=== PATIENT | male | born 1945 | race American Indian/Alaskan Native ===

== ENCOUNTER → 2017-10-03 12:42 | Outpatient (CLI) | payer MEDICARE, OTHER, SELFPAY ==
--- NOTE | 2017-10-03 | DI.ECHO.S_ITS ---
[facility] +---------+ : : [address] : : : : [id number] : : : : Phone: [phone] Echocardiogram Report + + :Name: GABRIEL CHACKO Study Date: 10/03/2017 Height: 67 in : :[facility] Exam Location: IS Weight: 195 lb : : Gender: Male BSA: 2.0 m2 : :: 1945 Age: 72 yrs BP: 130/85 mmHg: :Reason For Study: Atrial fibrillation : :Ordering Physician: Jayleen Duran : :Dominic Performed By: Nubia Page : + + Interpretation Summary 1) Normal left ventricular thickness, size, wall motion, and systolic function (EF 60-65%). 2) Normal right ventricular size and function. 3) No significant valvular abnormalities. 4) Mild atherosclerotic plaque(s) in the aortic arch. 5) No prior Echo available for comparison. Procedure: A two-dimensional transthoracic echocardiogram with color flow and Doppler was performed. The study quality was technically adequate. There is no prior echocardiogram noted for this patient. The patient was in sinus bradycardia with heart rates between 48-52 bpm during the exam. Left Ventricle: The left ventricle is normal in size, wall thickness, and systolic function without any focal wall motion abnormalities. The ejection fraction is estimated to be 60-65%. Assessment of diastolic parameters indicates normal left ventricular diastolic function and normal filling pressures. Right Ventricle: The right ventricle is borderline dilated. The right ventricular systolic function is normal. Atria: The left atrium is severely dilated. The right atrium is mildly dilated. There is no Doppler evidence for an interatrial shunt. Mitral Valve: The mitral valve is normal in structure and function. There is trace mitral regurgitation. Aortic Valve: The aortic valve is trileaflet. The aortic valve opens well. The aortic valve is mildly calcified. There is trace aortic regurgitation. Tricuspid Valve: The tricuspid valve is normal in structure and function. There is mild tricuspid regurgitation. Pulmonic Valve: The pulmonic valve is not well visualized. There is no pulmonic valvular regurgitation. Great Vessels: The aortic root is normal size. The ascending aorta is at the upper limits of normal in size. The aortic arch is normal in size. Mild atherosclerotic plaque(s) in the aortic arch. The pulmonary artery is not well visualized, but is probably normal size. The IVC is dilated (diameter is greater than 2.1 cm) yet it collapses greater than 50% with a sniff. This suggests a right atrial pressure of 8 mm Hg. Pericardium/ Pleura There is no pericardial effusion. There is no pleural effusion. MMode/2D Measurements & Calculations LVIDd: 5.0 cm LVOT diam: 2.2 cm LVIDs: 3.2 cm Ao root diam: 3.5 cm FS: 37.4 % asc Aorta Diam: 3.4 cm EPSS: 0.61 cm Ao Arch Diam (Prox Trans): 2.8 cm IVSd: 0.78 cm LVPWd: 0.80 cm LV carrera. diameter/BSA (cm/m^2): 2.5 LV sys. diameter/BSA (cm/m^2): 1.6 LA A2 area: 26.4 cm2 RA long axis: 5.5 cm LA A4 area: 29.1 cm2 RA area: 20.9 cm2 LA length (vol): 6.9 cm RA vol: 67.4 ml LA vol: 94.5 ml RA : 33.7 ml/m2 LA vol index: 47.2 ml/m2 IVC diam: 2.3 cm RVD1 (basal): 4.8 cm TAPSE: 2.8 cm Doppler Measurements & Calculations Ao V2 max: 154.4 cm/sec LVOT Max Garth: 96.4 cm/sec Ao V2 mean: 100.9 cm/sec LV V1 max P.7 mmHg Ao max P.5 mmHg LV V1 VTI: 19.9 cm Ao mean P.6 mmHg ANNA(I,D): 2.5 cm2 Ao V2 VTI: 30.2 cm ANNA(V,D): 2.3 cm2 sev ratio: 0.66 ANNA indexed to BSA (cm^2/m^2): 1.2 MV E max garth: 70.3 cm/sec TR max garth: 248.6 cm/sec MV A max garth: 70.9 cm/sec TR max P.7 mmHg MV E/A: 0.99 PA V2 max: 65.3 cm/sec Med Peak E' Garth: 8.7 cm/sec PA V2 mean: 45.8 cm/sec E/E' med: 8.1 PA mean P.94 mmHg Lat Peak E' Garth: 9.6 cm/sec PA Accel Time: 0.12 sec E/E' lat: 7.3 E/e' average: 7.7 MV dec time: 0.29 sec MV P1/2t: 82.9 msec MV P1/2t max garth: 70.5 cm/sec MVA(P1/2t): 2.7 cm2 Reading Physician:05:30 PM
== END ==
PROVIDERS: PCP Physician Assistant; Visit Provider Internal Medicine Cardiovascular Disease
DX: I48.91 Unspecified atrial fibrillation (principal)
CPT/HCPCS: 93306

== ENCOUNTER → 2018-01-27 13:12 | Outpatient (CLI) | payer MEDICARE, OTHER, SELFPAY ==
--- NOTE | 2018-01-27 | DI.CT.S_ITS ---
PROCEDURE: CT LUMBAR SPINE WO CON INDICATIONS: Bilateral lower extremity weakness post lumbar surgery 06-26-17 TECHNIQUE: Noncontrast 3 mm thick sections acquired from the T12 level to the sacrum. Sagittal and coronal reformats were constructed. For radiation dose reduction, the following was used: automated exposure control. COMPARISON: [facility], CR, XR LUMBAR SPINE 2 OR 3 VIEWS, 01/22/2018, 8:40. [facility], CR, XR LUMBAR SPINE 2 OR 3 VIEWS, 10/09/2017, 8:40. [facility], MR, L-SPINE W&WO CONTRAST, 05/29/2016, 9:11. FINDINGS: Image quality: Excellent. Posterior fusion with intervertebral spacer is present at L5-S1. Hardware is intact. Distal aspect of the left pedicular screw at S1 extends just beyond the margin of the S1 vertebral body. There are no visualized fractures or dislocations. Mild to moderate multilevel disc space narrowing is present. Mild disc bulges are present at L2-3, L3-4 including a left lateral/foraminal component, L4-5. Mild spinal stenosis is noted at L3-4, suspected moderate at L4-5, although difficult to evaluate secondary to metallic streak artifact. Mild to moderate left foraminal narrowing L1-L2, moderate left and minimal right L3-L4, mild bilateral L4-5, moderate left and severe right L5-S1. No retroperitoneal masses or hematomas. Visualized aorta is normal in caliber. IMPRESSION: 1. Posterior fusion at L5-S1 as above. 2. Multilevel spinal stenosis most notable at L4-5 predominantly secondary to disc bulge with contributing effect of facet/ligamentum flavum arthropathy. 3. Multilevel foraminal narrowing most severe at L5-S1 secondary to facet arthropathy. Dictated by: Kitty Ross M.D. on 01/27/2018 at 16:43 Approved by: Kitty Ross M.D. on 01/27/2018 at 16:51
== END ==
PROVIDERS: PCP Physician Assistant; Visit Provider Orthopaedic Surgery Orthopaedic Surgery of the Spine
DX: M51.26 Other intervertebral disc displacement, lumbar region (principal); M47.817 Spondylosis without myelopathy or radiculopathy, lumbosacral region; M62.81 Muscle weakness (generalized); M48.07 Spinal stenosis, lumbosacral region; M48.061 Spinal stenosis, lumbar region without neurogenic claudication; Z98.1 Arthrodesis status
CPT/HCPCS: 72131

== ENCOUNTER → 2020-07-25 11:10 | Outpatient (CLI) | payer MEDICARE, OTHER, SELFPAY ==
--- NOTE | 2020-07-25 11:15 | DI.US.S_ITS ---
PROCEDURE: US SOFT TISSUE HEAD AND NECK INDICATIONS: Localized swelling, mass and lump, neck TECHNIQUE: Real-time scanning was performed of the neck region of interest, with image documentation. COMPARISON: None. FINDINGS: The patient reports having had a mass at the posterior neck, approximately C7-T1 area for 40 years. Increasing discomfort. Sonographic assessment shows an ovoid 4.1 x 2.4 x 5.7 cm hypoechoic mildly heterogeneous sharply demarcated mass with vascularity along its periphery. Etiology is uncertain but the structure does not have imaging characteristics of a lipoma. IMPRESSION: Surgical consultation recommended, sharply demarcated ovoid hypoechoic mass that could be benign or malignant in origin. The patient reports 40 year history in this area of a palpable abnormality. Follow-up contrast-enhanced MR scanning may be warranted for preoperative planning. Dictated by: Irvin Rausch M.D. on 07/25/2020 at 12:30 Approved by: Irvin Rausch M.D. on 07/25/2020 at 12:32
== END ==
PROVIDERS: PCP Physician Assistant; Referring Provider Family Medicine; Visit Provider Family Medicine
DX: R22.1 Localized swelling, mass and lump, neck (principal)
CPT/HCPCS: 76536

== ENCOUNTER → 2020-09-05 09:17 | Outpatient (CLI) | payer MEDICARE, OTHER, SELFPAY ==
--- NOTE | 2020-09-05 09:19 | DI.MRI.S_ITS ---
PROCEDURE: MR CERVICAL SPINE WO/W CON INDICATIONS: Abnormal US of neck; possible malignancy TECHNIQUE: Noncontrast sagittal T1 spin echo and T2 fast spin echo, sagittal STIR, foraminal oblique sagittal T2 fast spin echo, axial gradient echo or T2 fast spin echo through the cervical spine. After the administration of contrast, axial and sagittal T1 spin echo with fat saturation through the cervical spine. COMPARISON: [facility], MR, C-SPINE WITHOUT CONTRAST, 10/26/2012, 12:55. [facility], US, US SOFT TISSUE HEAD AND NECK, 07/25/2020, 10:34. FINDINGS: Image quality: This examination is limited by involuntary motion artifact. Alignment and curvature: There is reversal of the normal cervical lordosis, with the apex at the C4-C5 level. Marrow: Marrow is normal in overall signal, without suspicious enhancement. Spinal cord: Visualized spinal cord has normal size and signal. No cerebellar tonsillar herniation. No abnormal intramedullary enhancement. Paraspinous soft tissues: In this patient with this given history, scrutiny is given to the posterior neck mass. A marker is placed by the patient overlying the neck mass. This is seen as a well circumscribed T2 hyperintense superficial focus just to the left of the midline that measures 5.7 by 2.9 cm in greatest axial dimension, with a craniocaudal extent of 3.9 cm. No significant enhancement can be seen. No additional soft tissue masses are detected. C2-3: The disc height is well-preserved. Loss of disc signal is seen at this level. A mild degree of generalized disc osteophyte complex is seen. There is moderate right-sided and [id number] left-sided facet hypertrophy seen. Moderate bilateral neural foraminal narrowing can be seen, right worse than left. Mild to moderate central canal narrowing is seen. C3-4: Mild loss of disc height is seen. Loss of disc signal is seen. Mild to moderate disc osteophyte complex is seen. Moderate facet joint hypertrophy is seen. There is mild right-sided and moderate left-sided neural foraminal narrowing seen. Mild to moderate central canal narrowing is seen. C4-5: At least moderate loss of disc height and disc signal can be seen. Moderate to prominent disc osteophyte complex is seen. There is moderate right-sided and kupz-im-hmslqxuf left-sided facet hypertrophy seen. There is moderate to severe bilateral neural foraminal narrowing seen. At least moderate central canal narrowing is seen, with mass effect upon the ventral spinal cord. C5-6: At least moderate loss of disc height and disc signal can be seen. There is moderate to prominent disc osteophyte complex seen, with a central disc osteophyte protrusion. There is moderate to severe bilateral neural foraminal narrowing seen. Moderate to severe central canal narrowing is seen, with associated mass effect upon the ventral spinal cord. C6-7: At least moderate loss of disc height and disc signal can be seen at this level. At least moderate disc osteophyte complex is seen. Moderate facet joint hypertrophy is seen. At least moderate bilateral neural foraminal narrowing can be seen, right worse than left. At least moderate central canal narrowing is seen. There is associated mass effect upon the ventral spinal cord. C7-T1: At least moderate loss of disc height and disc signal can be seen. Moderate generalized disc osteophyte complex is seen. Moderate facet joint hypertrophy is seen. Moderate to severe bilateral neural foraminal narrowing can be seen. Mild central canal narrowing is seen. IMPRESSION: 5.7 cm cystic appearing, nonenhancing superficial lesion seen involving the posterior soft tissues, centered just to the left of the midline. This is attributed to a benign cause, potentially related to a sebaceous cyst. This has grown compared to the 2013 CT examination. Multiple levels of cervical spine degenerative change are seen, which have progressed compared to 2013. Dictated by: Clifford Nair M.D. on 09/05/2020 at 9:54 Approved by: Clifford Nair M.D. on 09/05/2020 at 10:02
== END ==
PROVIDERS: PCP Physician Assistant; Referring Provider Surgery; Visit Provider Surgery
DX: R22.1 Localized swelling, mass and lump, neck (principal); M50.31 Other cervical disc degeneration, high cervical region
CPT/HCPCS: 72156

== ENCOUNTER → 2020-09-15 10:25 | Outpatient (CLI) | payer MEDICARE, OTHER, SELFPAY ==
[2020-09-15 11:18] LABS: COVID19 -Nasal RAPID Negative (Negative)
== END ==
PROVIDERS: PCP Physician Assistant; Visit Provider Surgery
DX: Z20.822 Contact with and (suspected) exposure to COVID-19 (principal)
CPT/HCPCS: 87635; C9803

== ENCOUNTER 2020-09-18 07:58 | Day surgery (SDC) | payer MEDICARE, OTHER, SELFPAY ==
[2020-09-12 15:09] VITALS: BMI 32.5
[2020-09-18] VITALS (8 sets, daily range): BP systolic 131–143; BP diastolic 76–91; PULSE 79–91; RESP 13–20; TEMP 36.6–36.8; O2SAT 92–95; BMI 32.5
--- NOTE | 2020-09-18 | PATH_ITS ---
[facility] Accession Number: [id number] . 01 Material submitted: . neck - NECK, SEBACEOUS CYST . 01 Clinical history: . SDC . 01 Diagnosis: Skin, Neck, Biopsy: Epidermal inclusion cyst. [facility] 09/20/2020 1635 Local . 01 Electronically signed: . Shweta Delgadillo MD, Pathologist NPI- [id number] . 01 Gross description: . The specimen is received in formalin labeled neck sebaceous cyst and consists of a 5.2 x 3.0 x 3.0 cm intact up-white cyst which is inked blue and sectioned to reveal up-white sebaceous material within the cyst. The cyst has a up-white smooth inner lining. Conference Services Coordinator sections are submitted in cassettes [id number]. ([id number]) /[facility] 09/19/2020 1734 Local . 01 Pathologist provided ICD-10: L72.3 . 01 CPT . 909198 Performed at: 01 [facility] [address] [place] [address] [address], [place], [place] [id number] MD Alexander Trujillo MD Phone: [phone]
[2020-09-18] MEDS: LACTATED RINGERS 1,000 ML 100 ML IV (08:48)
--- NOTE | 2020-09-18 09:35 | PM.PREOP ---
Pre-operative Note COVID-19 COVID-19 status: Negative Result date/Date tested (Pos, Neg/Pending): 09/15/20 Interval Note History & Physical reviewed/Exam performed by Physician: Yes Changes to H&P: No
[2020-09-18] MEDS: CEFAZOLIN 1 GM VIAL 2 GM IV (09:46)
--- NOTE | 2020-09-18 10:06 | SUR.OPER ---
Left Lateral on padded blood bag on padded OR bed, head on pillow x2, bottom leg bent with gel pad under knee to foot, gel pad over bottom edge of blood bag that is under the patient's thigh, upper leg straight and supported with pillows. Upper arm supported by pillows x2 and secured over bottom arm to padded arm board. Safety belt at chest, tape over blanket over lower legs.
[2020-09-18] MEDS: BUPIVACAINE 0.25% (PF) VIAL 30 ML INJ (10:14)
[2020-09-18] MEDS: EPINEPHrine 1 MG/ML 0.15 MG SUBCUT (10:15)
--- NOTE | 2020-09-18 11:04 | P.OP_ITS ---
Operative Date/Time/Diagnoses Date of procedure: 09/18/20 Time of procedure: 11:04 Pre-op diagnosis: Posterior neck cystic mass Post-op diagnosis: other (Giant sebaceous cyst) Procedure & Clinicians Procedure: Excision of posterior neck giant sebaceous cyst 4 x 5 cm Same procedure as scheduled: Yes Indications: Localized pain, enlarging cystic mass of unknown etiology Surgeon: Shameka Sanchez Yes if Unassisted: Yes Anesthesia Type: General Operative Notes Findings: Giant 4cm x 5cm sebaceous cyst with a thick capsule. Specimen(s): other (Sebaceous cyst) Estimated Blood Loss (mL): 2 Procedure in detail: The patient was brought to the operating room, placed supine on the operating table, and sequential compression devices were placed on both legs and turned on. Appropriate perioperative antibiotics were given. General anesthesia was induced by the anesthesiologist and the patient was intubated with an LMA. The patient was then placed in left lateral decubitus position with all bony prominences padded. The skin of the upper back and neck were then prepped and draped in sterile fashion, and a surgical time-out was conducted. At this point local anesthetic was injected using 0.25% Marcaine with epi, at the site of the planned incision. A 5 cm vertical modified elliptical incision was then made in the skin overlying the lesion in question. Dissection was then carried down through the dermis and subcutaneous tissue, including the subcutaneous cystic lesion. The entire specimen was dissected free and passed off the table. The remaining wound was irrigated, and electrocautery was used to achieve hemostasis. The skin was closed with 3-0 nylon horizontal mattress sutures. Total of 20 mL of 0.25% Marcaine with epi was infiltrated into the skin. A dry dressing was placed over the incision, and secured with Tegaderms. The patient was awakened from anesthesia and extubated. He was transferred onto his hospital [facility]. The patient was then transferred to the postanesthesia care unit in stable condition. She tolerated the procedure well. Needle sponge and instrument counts were correct x2 at the end of the case. Complications: none Post-operative Condition: stable Disposition: PACU
--- NOTE | 2020-09-18 11:22 | SUR.PHASEI ---
Surgeon at [facility] discussing case, findings and follow-up. Pt communicate sppaorpriate level of comprehension and compliance. Surgeon discussed stopping Eliquis and rationale. Pt very calm and pleasant. Relaxed. Skin warm and dry. Surgeon communicates with pt that pt will be called on for follow-up since he will not be in town and can not visit surgeon in office. Pt thankful.
== END 2020-09-18 11:56 | disposition home or self-care (01) ==
PROVIDERS: PCP Physician Assistant; Referring Provider Surgery; Visit Provider Surgery
PROC: (CPT 11426; principal; 2020-09-18 09:45)
DX: L72.0 Epidermal cyst (principal); F17.210 Nicotine dependence, cigarettes, uncomplicated; I10 Essential (primary) hypertension; I48.91 Unspecified atrial fibrillation; R20.8 Other disturbances of skin sensation
CPT/HCPCS: 11426; 82962; J0171; J0690; J1100; J2250; J2405; J2704; J3010

== ENCOUNTER 2020-12-09 10:44 | Emergency (ER) | payer MEDICARE, OTHER, SELFPAY ==
[2020-12-09 10:59] VITALS: BP 100/66; PULSE 77; RESP 21; TEMP 36.7; O2SAT 95
--- NOTE | 2020-12-09 11:00 | ED_ITS ---
HPI - General Adult General Chief complaint: Extremity Problem,Nontraumatic Stated complaint: Cannot put pressure on legs- 2 days Time Seen by Provider: 12/09/20 10:45 Source: patient Mode of arrival: Wheelchair History of Present Illness HPI narrative: Patient is a 75-year-old male who arrives the emergency department today for approximately 24-36 hours of pain in his bilateral lower extremities. He states that the symptoms started prior to having a 7 [address] ride. He states that his pain all around his legs. Specifically when he stands on his legs. No tingling. No urinary symptoms. No bowel habits. No fevers. He has had spinal surgery in the past but he does not think that he is having any back pain today. He denies any specific trauma. Related Data Home Medications Medication Instructions Recorded Confirmed amlodipine 10 mg tablet 10 mg PO QDAY #0 06/11/17 09/26/20 atorvastatin 20 mg tablet (Lipitor) 20 mg PO QAM #0 06/11/17 09/26/20 buprenorphine 10 mcg/hour weekly 1 patch TOPICAL QWEEKSA #0 06/11/17 09/26/20 transdermal patch (Butrans) doxazosin 1 mg tablet 1 mg PO QAM #0 06/11/17 09/26/20 furosemide 20 mg tablet 20 mg PO QDAY #0 06/11/17 09/26/20 gabapentin 300 mg capsule 2 tab PO BID #0 06/11/17 09/26/20 (Neurontin) lisinopril 30 mg tablet 60 mg PO QDAY #0 06/11/17 09/26/20 potassium chloride 8 mEq 8 meq PO QDAY #0 06/11/17 09/26/20 capsule,extended release doxazosin 1 mg tablet (Cardura) 1 mg PO DAILY 08/23/20 09/26/20 hydrocodone 5 mg-acetaminophen 325 1 tab PO BID PRN 08/23/20 09/26/20 mg tablet metoprolol succinate 50 mg 50 mg PO DAILY 08/23/20 09/26/20 tablet,extended release 24 hr hydroxyzine pamoate 25 mg capsule 25 - 50 mg PO Q4HP PRN 09/14/20 09/26/20 Previous Rx's Medication Instructions Recorded hydrocodone 5 mg-acetaminophen 325 1 tab PO Q8H PRN #10 tab 09/11/21 mg tablet Allergies Allergy/AdvReac Type Severity Reaction Status Date / Time No Known Drug Allergies Allergy Verified 09/26/20 10:53 Review of Systems Constitutional Constitutional: Reports system reviewed and no additional complaints, except as documented Cardiovascular Cardiovascular: Reports system reviewed and no additional complaints, except as documented Respiratory Respiratory: Reports system reviewed and no additional complaints, except as d ocumented Gastrointestinal Gastrointestinal: Reports system reviewed and no additional complaints, except as documented Genitourinary Genitourinary: Reports system reviewed and no additional complaints, except as documented Musculoskeletal Musculoskeletal: Reports system reviewed and no additional complaints, except as documented Integumentary/Breasts Skin/Breast: Reports system reviewed and no additional complaints, except as documented Neurologic Neurologic: Reports system reviewed and no additional complaints, except as documented Hematologic/Lymphatic On Anticoagulants: No Patient History Medical History A-fib (~2017) Chronic low back pain Chronic neck pain Current every day smoker Diverticulosis HTN (hypertension) Hyperlipemia Lumbar radiculopathy Nerve root injury Trauma Surgical History History of back surgery (06/26/17) Hx of knee surgery Social History marital status: unknown household members: none Smoking Status: Current every day smoker substance use type: does not use Smoking Status: Current every day smoker alcohol intake frequency: a few times a week Substance Use Type: does not use Exam Initial Vital Signs Initial Vital Signs: Vital Signs Temperature 98.0 F 12/09/20 10:59 Pulse Rate 77 12/09/20 10:59 Respiratory Rate 21 12/09/20 10:59 Blood Pressure 100/66 12/09/20 10:59 Pulse Oximetry 95 12/09/20 10:59 Const General: cooperative and healthy appearing HENMT Head: normal to inspection and normocephalic Resp Effort & Inspection: normal respiratory effort Auscultation: clear to auscultation bilaterally Cardio Rate: regular rate Rhythm: regular rhythm Back/Spine/Pelvis Thoracic/Lumbar Spine: No paraspinal tenderness, No thoraco-lumbar spasm and No thoracic spinal tenderness Sacroiliac Joints: nontender Skin General: no rashes or lesions noted Neuro General: patient alert and patient awake Motor: muscle tone normal throughout Sensory Exam: no sensory deficits noted Extrem Other: Patient does not have any specific tenderness to palpation of his bilateral hips knees or ankles. He reports pain in his legs when he flexes at his hips both active and passive. Psych Appearance: grossly normal and well kempt Course Orders Ordered: Discontinued Medications Hydromorphone HCl (Hydromorphone 1 Mg Inj) 1 mg IV NOW ONE Stop: 12/09/20 11:02 Last Admin: 12/09/20 11:23 Dose: Not Given Documented by: BARBRA Hydromorphone HCl (Hydromorphone 1 Mg Inj) 1 mg IM NOW ONE Stop: 12/09/20 11:14 Last Admin: 12/09/20 11:14 Dose: 1 mg Documented by: BARBRA Ketorolac Tromethamine (Ketorolac 30 Mg/Ml Vial) 30 mg IM NOW ONE Stop: 12/09/20 11:02 Last Admin: 12/09/20 11:14 Dose: 30 mg Documented by: BARBRA Vital Signs Vital signs: Vital Signs - 8 hr 12/09/20 10:59 12/09/20 11:38 Temperature 98.0 F Pulse Rate 77 66 Respiratory Rate 21 16 Blood Pressure 100/66 100/60 Pulse Oximetry 95 96 Medical Decision Making [facility] Narrative Medical decision making narrative: Patient denies trauma. Low suspicion for fracture. No indication for radiologic studies. No back pain. Low suspicion for cauda equina. I do suspect this is musculoskeletal. He has no neurologic symptoms. He does feel better after medications given here in the emergency department. Will send home with prescription for pain medication. He has a walker at home that he can use if needed. He was given return precautions follow-up instructions. He expressed understanding and agreement. Discharge Plan Departure Patient Disposition: Home Clinical Impression: Leg pain, bilateral Instructions: DI for Leg Pain Activity Restrictions/Additional Instructions: I do recommend that you use the walker as needed. You can use the pain medication is needed as well. Contact your primary doctor for follow-up. Return to the emergency department for any new or worsening symptoms Prescriptions: New hydrocodone-acetaminophen 5-325 mg tablet 1 tab PO Q8H PRN (Reason: pain) Qty: 10 RF: 0 No Action lisinopril 30 MG tablet 60 mg PO QDAY Qty: 0 RF: 0 gabapentin [Neurontin] 300 MG capsule 2 tab PO BID Qty: 0 RF: 0 doxazosin 1 MG tablet 1 mg PO QAM Qty: 0 RF: 0 buprenorphine [Butrans] 10 MCG patch weekly 1 patch Topical QWEEKSA Qty: 0 RF: 0 potassium chloride 8 MEQ capsule, extended release 8 meq PO QDAY Qty: 0 RF: 0 furosemide 20 MG tablet 20 mg PO QDAY Qty: 0 RF: 0 atorvastatin [Lipitor] 20 MG tablet 20 mg PO QAM Qty: 0 RF: 0 amlodipine 10 MG tablet 10 mg PO QDAY Qty: 0 RF: 0 metoprolol succinate 50 mg tablet extended release 24 hr 50 mg PO DAILY RF: 0 hydrocodone-acetaminophen 5-325 mg tablet 1 tab PO BID PRN (Reason: Pain) RF: 0 doxazosin [Cardura] 1 mg tablet 1 mg PO DAILY RF: 0 hydroxyzine pamoate 25 MG capsule 25 - 50 mg PO Q4HP PRN (Reason: Pain, spasm) RF: 0 Referrals: Eveline Pantoja PA-C [Primary Care Provider] -
[2020-12-09] MEDS: KETOROLAC 30 MG/ML VIAL IM (11:14)
[2020-12-09] MEDS: HYDROMORPHONE 1 MG INJ IM (11:14)
[2020-12-09 11:38] VITALS: BP 100/60; PULSE 66; RESP 16; O2SAT 96
--- NOTE | 2020-12-09 11:51 | PC.NURSE ---
Pt stood at bedside and verbalized improvement in pain, x1 assist to stand but able to stand independently once up. States he has a walker at home he utilizes.
== END 2020-12-09 12:07 | disposition home or self-care (01) ==
PROVIDERS: Emergency Provider Emergency Medicine; PCP Physician Assistant
DX: M79.605 Pain in left leg (principal); M79.604 Pain in right leg
CPT/HCPCS: 96372; 99283; J1170; J1885

== ENCOUNTER → 2022-12-03 13:00 | Outpatient (CLI) | payer MEDICARE, OTHER, SELFPAY ==
--- NOTE | 2022-12-03 | DI.US.S_ITS ---
PROCEDURE: US PERIPH VENOUS UP EXTREM LT INDICATIONS: LEFT ARM PAIN AND SWELLING TECHNIQUE: Real-time imaging, as well as color and pulse Doppler interrogation, was performed of the left upper extremity deep veins from the inferior neck to the antecubital fossa. COMPARISON: None. FINDINGS: The internal jugular vein, visualized portions of the subclavian vein, axillary, and brachial veins are free of intraluminal thrombus. Where physically possible, the veins are normally compressible. Color and pulse Doppler demonstrate normal intraluminal flow, with expected phasicity and pulsatility. Additional scanning of the cephalic and basilic veins of the superficial system demonstrates normal compressibility, without thrombus. IMPRESSION: No findings of upper extremity deep venous thrombosis can be seen. Dictated by: Capo Luther M.D. on 12/03/2022 at 16:32 Approved by: Capo Luther M.D. on 12/03/2022 at 16:33
== END ==
PROVIDERS: PCP Physician Assistant; Referring Provider Physician Assistant; Visit Provider Physician Assistant
DX: M79.602 Pain in left arm (principal)
CPT/HCPCS: 93971

== ENCOUNTER → 2024-03-04 06:52 | Outpatient (CLI) | payer MEDICARE, OTHER, SELFPAY ==
--- NOTE | 2024-03-04 06:54 | DI.US.S_ITS ---
PROCEDURE: US PERIPH VENOUS LOW EXTREM LT INDICATIONS: EDEMA OF LEFT LOWER EXTREMITY TECHNIQUE: Real-time imaging, as well as color and pulse Doppler interrogation, were performed of the left lower extremity deep veins from the inguinal ligament to the popliteal fossa, with documentation of the visualized calf veins. COMPARISON: None. FINDINGS: The common femoral, femoral, popliteal, and the visualized calf veins are normally compressible, and free of intraluminal thrombus. Color and pulse Doppler demonstrate normal phasic intraluminal flow. There is normal augmentation response to distal compression maneuver. IMPRESSION: No evidence of deep venous thrombosis involving the left lower extremity. Dictated by: Hector Vidal M.D. on 03/04/2024 at 12:46 Approved by: Hector Vidal M.D. on 03/04/2024 at 12:46
== END ==
PROVIDERS: PCP Physician Assistant; Referring Provider Physician Assistant; Visit Provider Physician Assistant
DX: R60.0 Localized edema (principal)
CPT/HCPCS: 93971

== ENCOUNTER → 2024-04-02 09:15 | Outpatient (CLI) | payer MEDICARE, OTHER, SELFPAY ==
--- NOTE | 2024-04-02 09:18 | DI.ECHO.S_ITS ---
[place] [facility] : : [id number] : : [place] : : [id number] : : Phone: [phone] Echocardiogram Report + + :Name: GABRIEL CHACKO Study Date: 04/02/2024 Height: 67 in : :[facility] ReadingLocation: Weight: 205 lb : : Gender: Male BSA: 2.0 m2 : :: 1945 Age: 78 yrs BP: 129/90 mmHg: :Reason For Study: CHRONIC CONGESTIVE HEART FAILURE : :Ordering Physician: LAWRENCE, : :JOEY Performed By: Shayna Jensen : :Referring: JOEY BRAVO : + + Interpretation Summary The patient was in atrial fibrillation with heart rates between 62-77 bpm during the exam. The left ventricle is normal in size. The left ventricular ejection fraction is normal. The ejection fraction is estimated to be 55-60%. There has been no significant change in EF since the previous exam. The right ventricle is mild to moderately dilated. Right ventricular systolic function is at the lower limits of normal. There is mild to moderate tricuspid regurgitation. Compared to the prior echo exam, there has been no change in TR severity. The right ventricular systolic pressure is estimated to be at least 36.4 mmHg based on an estimated right atrial pressure of 3 mm Hg. Previously 31 mmHg. Procedure: A two-dimensional transthoracic echocardiogram with color flow and Doppler was performed. The study quality was technically adequate. Comparison is made with the echocardiogram of 04/04/2022. The patient was in atrial fibrillation with heart rates between 62-77 bpm during the exam. Left Ventricle: The left ventricle is normal in size. There is normal left ventricular wall thickness. There is no thrombus. The ejection fraction is estimated to be 55-60%. The left ventricular ejection fraction is normal. There has been no significant change since the previous exam. There are no focal wall motion abnormalities. Diastolic function could not be accurately assessed due to atrial fibrillation. Right Ventricle: The right ventricle is mild to moderately dilated. Right ventricular systolic function is at the lower limits of normal. Atria: The left atrium is severely dilated. There has been no significant change since the previous study. The right atrium is moderate to severely dilated. There is no Doppler evidence for an interatrial shunt. Mitral Valve: There is mild mitral annular calcification. There is trace mitral regurgitation. Aortic Valve: The aortic valve is trileaflet. The aortic valve is slightly calcified. There is no aortic valve stenosis. There is trace aortic regurgitation. Tricuspid Valve: The tricuspid valve is not well visualized, but is grossly normal. There is mild to moderate tricuspid regurgitation. Compared to the prior echo exam, there has been no change in TR severity. The right ventricular systolic pressure is estimated to be at least 36.4 mmHg based on an estimated right atrial pressure of 3 mm Hg. Pulmonic Valve: The pulmonic valve is not well seen, but is grossly normal. There is trace pulmonic regurgitation. Great Vessels: The aortic root is normal size. The dimensions of the ascending aorta are normal. The IVC is of normal diameter and collapses greater than 50% with a sniff. This suggests a low right atrial pressure of 3 mm Hg. Pericardium/ Pleura There is no pericardial effusion. There is no pleural effusion. MMode/2D Measurements & Calculations LVIDd: 4.0 cm LVOT diam: 2.1 cm LVIDs: 2.9 cm Ao root diam: 3.3 cm FS: 28.1 % asc Aorta Diam: 3.2 cm IVSd: 0.82 cm Ao Arch Diam (Prox Trans): 2.5 cm LVPWd: 0.99 cm LV carrera. diameter/BSA (cm/m^2): 2.0 LV sys. diameter/BSA (cm/m^2): 1.4 LA A2 area: 27.2 cm2 RA long axis: 6.7 cm LA A4 area: 34.6 cm2 RA area: 26.2 cm2 LA length (vol): 6.7 cm RA vol: 87.3 ml LA vol: 119.8 ml RA : 42.7 ml/m2 LA vol index: 58.6 ml/m2 IVC diam: 2.0 cm RVD1 (basal): 4.7 cm TAPSE: 1.7 cm Doppler Measurements & Calculations Ao V2 max: 125.0 cm/sec LVOT Max Garth: 79.2 cm/sec Ao V2 mean: 82.7 cm/sec LV V1 max P.5 mmHg Ao max P.3 mmHg LV V1 VTI: 14.9 cm Ao mean P.1 mmHg ANNA(I,D): 2.4 cm2 Ao V2 VTI: 21.0 cm ANNA(V,D): 2.2 cm2 sev ratio: 0.71 ANNA indexed to BSA (cm^2/m^2): 1.2 MV E max garth: 75.2 cm/sec TR max garth: 288.7 cm/sec MV A max garth: 0.58 cm/sec TR max P.4 mmHg MV E/A: 129.0 PA V2 max: 69.1 cm/sec Med Peak E' Garth: 9.7 cm/sec PA V2 mean: 48.9 cm/sec E/E' med: 7.7 PA mean P.0 mmHg Lat Peak E' Garth: 14.5 cm/sec PA pr(Accel): 44.7 mmHg E/E' lat: 5.2 E/e' average: 6.5 MV dec time: 0.18 sec SV(LVOT): 51.1 ml Reading Physician:02:47 PM
== END ==
LOC: ECHO 09:18
PROVIDERS: PCP Physician Assistant; Referring Provider Physician Assistant; Visit Provider Physician Assistant
DX: I50.9 Heart failure, unspecified (principal); I08.1 Rheumatic disorders of both mitral and tricuspid valves
CPT/HCPCS: 93306